=== PATIENT | male | born 1970 | race Caucasian/White ===

== ENCOUNTER 2017-05-12 18:55 | Inpatient (IN) | payer BC ==
[2017-05-12] MEDS ORDERED: SODIUM CHLORIDE 1,000 ML IV STA (20:22)
[2017-05-12] MEDS ORDERED: ONDANSETRON 4 MG/2 ML VIAL IVPUSH ONE (20:22)
[2017-05-12] MEDS ORDERED: morphine CARPU-JECT 4 MG/1 ML DISP.SYRIN IVPUSH ONE (20:22)
[2017-05-12] MEDS ORDERED: ACETAMINOPHEN 500 MG TABLET (FP) PO ONE (20:23)
[2017-05-12] MEDS ORDERED: ACETAMINOPHEN 325 MG TABLET (FP) ONE (20:56)
[2017-05-12] MEDS ORDERED: ONDANSETRON 4 MG/2 ML VIAL ONE (20:56)
[2017-05-12] MEDS ORDERED: morphine CARPU-JECT 4 MG/1 ML DISP.SYRIN ONE (20:56)
[2017-05-12 20:57] LABS: BASOPHIL 0.6 % (0-2.0); EOSINOPHIL 0.3 % (0-4.5); MCH 30.5 pg (25.7-33.7); MCHC 33.7 g/dl (32.0-35.9); MEAN CELL VOLUME 90.5 fl (80-96); MEAN PLT VOLUME 9.4 fl (7.5-11.1); NEUTROPHILS 89.8 % (42.8-82.8); PLATELET COUNT 197 K/MM3 (134-434); RDW 13.2 % (11.9-15.9); WHITE BLOOD COUNT 8.5 K/mm3 (4.0-10.0)
[2017-05-12 20:59] LABS: URINE APPEARANCE CLEAR; URINE BILIRUBIN NEGATIVE (NEGATIVE); URINE BLOOD NEGATIVE (NEGATIVE); URINE COLOR YELLOW; URINE GLUCOSE (UA) 3+ (NEGATIVE); URINE KETONE TRACE (NEGATIVE); URINE LEUK ESTERASE NEGATIVE (NEGATIVE); URINE NITRITE NEGATIVE (NEGATIVE); URINE UROBILINOGEN NEGATIVE mg/dL (0.2-1.0)
[2017-05-12 21:13] LABS: URINE PROTEIN 1+ (NEGATIVE)
[2017-05-12 21:15] LABS: URINE MUCUS RARE; URINE RBC 1 /hpf (0-3); URINE WBC 2 /hpf (3-5)
[2017-05-12 21:26] LABS: ALBUMIN 3.7 g/dl (3.4-5.0); ALK PHOS 90 U/L (45-117); AMYLASE 19 U/L (25-115); ANION GAP 9 (8-16); BILIRUBIN,TOTAL 1.3 mg/dL (0.2-1.0); CALCIUM 8.9 mg/dL (8.5-10.1); CO2 29 mmol/L (21-32); CREATININE 0.8 mg/dL (0.7-1.3); GLUCOSE,RANDOM 220 mg/dL (74-106); SGOT/AST 27 U/L (15-37); SGPT/ALT 46 U/L (12-78); TOT PROT 7.1 g/dl (6.4-8.2)
--- NOTE | 2017-05-12 22:33 | PDOC ---
History of Present Illness - General Chief Complaint: Pain Stated Complaint: ABD PAIN Time Seen by Provider: 05/12/17 20:15 History Source: Patient, Significant Other Exam Limitations: No Limitations - History of Present Illness Travel History: No Initial Comments: 05/12/17 22:28 46yo Male patient with no significant past medical history presents to ED c/o severe abdominal pain which began this morning around 4-5am. Patient states he was sitting up drinking tea when symptoms began. Patient states symptoms progressed throughout the day with associated low grade fever. Last BM: last night (normal). He denies n/v/d, CP, Diff breathing, hematuria, dysuria, rectal bleeding, or any other complaints at this time. PCP- None. Timing/Duration: reports: constant, getting worse Quality: reports: severe Abdominal Pain Onset Location: reports: RLQ, periumbilical Pain Radiation: reports: no radiation Activities at Onset: reports: no specific activity Treatment Prior to Arrive: worse with: analgesics, antacids, cold pack, heat, laxative, enema, other Aggravating Factors: worse with: None, Defecation, Eating, Emotional upset, Exertion, Rockholds, Movement, Voiding, Change in position Alleviating Factors: worse with: None, Belching, Shallow Breathing, Defecation, Eating, Holding Breath, Passing Gas, Change in Position, Rest, Voiding, Vomiting Past History - Travel Traveled outside of the country in the last 30 days: No Close contact w/someone who was outside of country & ill: No - Past Medical History Allergies/Adverse Reactions: Allergies Allergy/AdvReac Type Severity Reaction Status Date / Time No Known Allergies Allergy Verified 05/12/17 21:03 Home Medications: Ambulatory Orders NK [No Known Home Medication] 02/05/16 Other medical history: NONE - Immunization History Immunization Up to Date: Yes - Psycho/Social/Smoking Cessation Hx Anxiety: No Suicidal Ideation: No Smoking History: Never smoked Have you smoked in the past 12 months: No Hx Alcohol Use: No Drug/Substance Use Hx: No Substance Use Type: None Abd/GI Specific PMHX - Complaint Specific PMHX Colitis: No Diverticulitis: No Gall Bladder Disease: No GERD: No Hepatitis: No Irritable Bowel Synd (IBS): No Pancreatitis: No GI Ulcer Disease: No Review of Systems - Review of Systems Able to Perform ROS?: Yes Is the patient limited [place] Citizen proficient: No Respiratory: No: Cough Cardiac (ROS): No: Chest Pain, Edema, Palpitations, Syncope, Chest Tightness ABD/GI: Yes: Other (Abdominal Pain- RLQ and Periumbilical). No: Constipated, Diarrhea, Nausea, Poor Appetite, Poor Fluid Intake, Vomiting, Abdominal cramping : No: Burning, Dysuria, Flank Pain, Hematuria Musculoskeletal: Yes: Back Pain (Chronic) Integumentary: No: Bruising, Erythema, Rash Neurological: No: Headache, Seizure All Other Systems: Reviewed and Negative *Physical Exam - Vital Signs Last Vital Signs Temp Pulse Resp BP Pulse Ox 99.4 F 102 H 20 162/94 97 05/12/17 19:01 05/12/17 19:01 05/12/17 19:01 05/12/17 19:01 05/12/17 19:01 - Physical Exam General Appearance: Yes: Nourished, Appropriately Dressed, Apparent Distress, Moderate Distress. No: Mild Distress, Severe Distress Neck: positive: Trachea midline, Normal Thyroid, Supple. negative: Stridor, Lymphadenopathy (R), Lymphadenopathy (L) Respiratory/Chest: positive: Lungs Clear, Normal Breath Sounds. negative: Chest Tender, Respiratory Distress, Accessory Muscle Use, Labored Respiration, Rapid RR, Rhonchi, Stridor, Wheezing Cardiovascular: positive: Regular Rhythm, Regular Rate Gastrointestinal/Abdominal: positive: Normal Bowel Sounds, Tender, Soft, Guarding, Rebound, Tenderness. negative: Increased Bowel Sounds, Distended Musculoskeletal: positive: Normal Inspection. negative: CVA Tenderness, CVA Tenderness (R), CVA Tenderness (L), Decreased Range of Motion Extremity: positive: Normal Capillary Refill, Normal Inspection, Normal Range of Motion. negative: Pedal Edema, Swelling, Calf Tenderness, Erythema, Inflammation Integumentary: positive: Normal Color, Dry, Warm Neurologic: positive: file clerk II-XII NML intact, Fully Oriented, Alert, Normal Mood/ Affect, Normal Response, Motor Strength /5 ED Treatment Course - LABORATORY CBC & Chemistry Diagram: 05/12/17 20:51 05/12/17 20:51 - ADDITIONAL ORDERS Additional order review: Laboratory Results 05/12/17 05/12/17 20:51 20:51 Sodium 135 L Potassium 4.3 Chloride 97 L Carbon Dioxide 29 Anion Gap 9 BUN 9 Creatinine 0.8 Creat Clearance w eGFR > 60 Random Glucose 220 H Calcium 8.9 Total Bilirubin 1.3 H AST 27 ALT 46 Alkaline Phosphatase 90 Total Protein 7.1 Albumin 3.7 Total Amylase 19 L Lipase 103 Urine Color Yellow Urine Appearance Clear Urine pH 5.0 Urine Protein 1+ H Urine Glucose (UA) 3+ H Urine Ketones Trace H Urine Blood Negative Urine Nitrite Negative Urine Bilirubin Negative Urine Urobilinogen Negative Ur Leukocyte Esterase Negative Urine RBC 1 Urine WBC 2 Urine Mucus Rare 05/12/17 20:51 RBC 4.91 MCV 90.5 MCHC 33.7 RDW 13.2 MPV 9.4 Neutrophils % 89.8 H Lymphocytes % 3.9 L Monocytes % 5.4 Eosinophils % 0.3 Basophils % 0.6 - RADIOLOGY Radiology Studies Ordered: Category Date Time Status ABDOMEN & PELVIS CT WITH CONTR [CT] Stat CT Scan 05/12/17 20:23 Ordered - Medications Given in the ED: ED Medications Discontinued Medications Generic Name Dose Route Start Last Admin Trade Name Freq PRN Reason Stop Dose Admin Acetaminophen 1,000 mg 05/12/17 20:23 05/12/17 21:02 Tylenol - PO 05/12/17 20:24 1,000 mg ONCE ONE Administration Sodium Chloride 1,000 mls @ 1,000 mls/hr 05/12/17 20:22 05/12/17 21:02 Normal Saline - IV 05/12/17 21:21 1,000 mls/hr ASDIR STA Administration Morphine Sulfate 4 mg 05/12/17 20:22 05/12/17 21:02 Morphine Injection - IVPUSH 05/12/17 20:23 4 mg ONCE ONE Administration Ondansetron HCl 4 mg 05/12/17 20:22 05/12/17 21:02 Zofran Injection IVPUSH 05/12/17 20:23 4 mg ONCE ONE Administration *DC/Admit/Observation/Transfer Diagnosis at time of Disposition: Appendicitis Qualifiers: Appendicitis type: acute appendicitis Acute appendicitis type: unspecified acute appendicitis type Qualified Code(s): K35.80 - Unspecified acute appendicitis - Discharge Dispostion Condition at time of disposition: Fair Admit: Yes
[2017-05-13] MEDS ORDERED: SODIUM CHLORIDE 1,000 ML IV STA (00:08)
[2017-05-13] MEDS ORDERED: PIPERACILLIN/TAZOB 3.375 GM/50 ML PRE-DOCKED IV ONE (00:08)
[2017-05-13] MEDS ORDERED: morphine CARPU-JECT 4 MG/1 ML DISP.SYRIN IVPUSH ONE (00:24)
[2017-05-13] MEDS ORDERED: morphine CARPU-JECT 4 MG/1 ML DISP.SYRIN ONE (00:29)
[2017-05-13] MEDS ORDERED: PIPERACILLIN/TAZOB 3.375 GM 50 ML IVPB ONE (00:30)
[2017-05-13] MEDS ORDERED: ONDANSETRON 4 MG/2 ML VIAL IVPB PRN ×2 (01:09→11:45)
[2017-05-13] MEDS ORDERED: SODIUM CHLORIDE 1,000 ML IV SCH (01:15)
--- NOTE | 2017-05-13 01:17 | HP ---
CHIEF COMPLAINT: "Right sided abdominal pain" PCP: No PCP HISTORY OF PRESENT ILLNESS: Patient is a 46 year old male with no signficant past medical history presented to the ED with the chief complaints of severe right sided abdominal pain. As per the patient, he was apparently well until one day ago, then he suddenly developed epigastric pain that woke him up from sleep at around 2am in the morning. Abdominal pain got worse, crampy in nature, 9/10 in intensity, slowly he experienced pain in the right lower quadrant, non radiating, no relieving factors (Ibuprofen didn't help) and no aggravating factors. Not associated with nausea or vomiting. Associated with low grade fever, chills, rigors and sweating. Pain was unbearable and hence came in to the ED. Patient mentions that he hasn't seen any doctor since 5 years, hasn't had a physical, doesn't know his past medical illness. Bowel/Bladder habit normal. Sleep/Appetite normal prior his illness. ER course was notable for: (1) Afebrile, hemodynamically stable, no leukocytosis (2) CT abdomen/Pelvis: Moderate suspicion of appendicitis (3) IV NS, Zofran, and Zosyn. Recent Travel: None PAST MEDICAL HISTORY: None PAST SURGICAL HISTORY: None Social History: Smoking: Former smoker, quit 18 years ago Alcohol: Drinks 3-4times/night- 3-4 beers, shots of whiskey, wine Drugs: Denies Family History: Unknown Allergies No Known Allergies Allergy (Verified 05/12/17 21:03) HOME MEDICATIONS: Home Medications Medication Instructions Recorded NK [No Known Home Medication] 02/05/16 REVIEW OF SYSTEMS CONSTITUTIONAL: Present: fever, chills, diaphoresis, Absent: generalized weakness, malaise, loss of appetite, weight change HEENT: Absent: rhinorrhea, nasal congestion, throat pain, throat swelling, difficulty swallowing, mouth swelling, ear pain, eye pain, visual changes CARDIOVASCULAR: Absent: chest pain, syncope, palpitations, irregular heart rate, lightheadedness , peripheral edema RESPIRATORY: Absent: cough, shortness of breath, dyspnea with exertion, orthopnea, wheezing, stridor, hemoptysis GASTROINTESTINAL: Present: abdominal pain Absent: , abdominal distension, nausea, vomiting, diarrhea, constipation, melena , hematochezia GENITOURINARY: Absent: dysuria, frequency, urgency, hesitancy, hematuria, flank pain, genital pain MUSCULOSKELETAL: Absent: myalgia, arthralgia, joint swelling, back pain, neck pain SKIN: Absent: rash, itching, pallor HEMATOLOGIC/IMMUNOLOGIC: Absent: easy bleeding, easy bruising, lymphadenopathy, frequent infections ENDOCRINE: Absent: unexplained weight gain, unexplained weight loss, heat intolerance, cold intolerance NEUROLOGIC: Absent: headache, focal weakness or paresthesias, dizziness, unsteady gait, seizure, mental status changes, bladder or bowel incontinence PSYCHIATRIC: Absent: anxiety, depression, suicidal or homicidal ideation, hallucinations. PHYSICAL EXAMINATION GENERAL: Young male, lying comfortably in bed, Awake, alert, and fully oriented , in no acute distress. HEAD: Normal with no signs of trauma. EYES: EOM intact, no pallor or icterus. EARS, NOSE, THROAT: Ears normal. Moist mucous membranes. NECK: Normal range of motion, supple without lymphadenopathy, JVD, or masses. LUNGS: Breath sounds equal, clear to auscultation bilaterally. No wheezes, and no crackles. HEART: Regular rate and rhythm, normal S1 and S2 without murmur, rub or gallop. ABDOMEN: Soft, rebound tenderness in the right lower quadrant, Rovsing sign +, obturator sign +, not distended, normoactive bowel sounds, no guarding, no rebound, no masses. Hepatomegaly or splenomegaly couldn't be assessed. MUSCULOSKELETAL: Normal range of motion at all joints. No bony deformities or tenderness. No CVA tenderness. UPPER EXTREMITIES: 2+ pulses, warm, well-perfused. No cyanosis. No clubbing. No peripheral edema. LOWER EXTREMITIES: 2+ pulses, warm, well-perfused. No calf tenderness. No peripheral edema. NEUROLOGICAL: No facial droop. Cranial nerves II-XII intact. Normal speech.Gait not observed. Reflexes intact, power 5/5 in all ext. PSYCHIATRIC: Cooperative. Good eye contact. Appropriate mood and affect. SKIN: Warm, dry, normal turgor, no rashes or lesions noted, normal capillary refill. ASSESSMENT/PLAN: Patient is a 46 year old male with no signficant past medical history presented to the ED with the chief complaints of severe right sided abdominal pain. # Acute appendicitis c/o right sided abdominal pain Abd/Pelvis CT scan showed Moderate suspicion for acute appendicitis In the Ed, patient received IV NS, IV Zosyn Admitted in Med-Surg IV NS @ 75mls/hr IV MOrphine for pain control IV Zofran for nausea NPO Type and screen Dr. Patterson has been consulted. As per ED staff, Dr. Patterson has been informed and he might operate him tomorrow. # R/O DM, HLD HbA1c ordered, Lipid profile ordered # FEN IV NS @ 75mls.hr Electrolytes normal NPO # Prophylaxis For DVT: On SCDs, ambulating FoR GI: Not on prophylaxis # Code Status: Full Code # Dispo: Admitted in Med-Surg. Duration of stay unknown. Illness, Investigation and Plan of care explained to the patient and his . They verbalized understanding. Case to be discussed with Dr. Smith. Visit type - Emergency Visit Emergency Visit: Yes ED Registration Date: 05/13/17 Care time: The patient presented to the Emergency Department on the above date and was hospitalized for further evaluation of their emergent condition. - New Patient This patient is new to me today: Yes Date on this admission: 05/13/17 - Critical Care Critical Care patient: No
[2017-05-13] MEDS ORDERED: morphine CARPU-JECT 4 MG/1 ML DISP.SYRIN IVPUSH PRN ×2 (01:31→11:45)
[2017-05-13 04:42] VITALS: BMI 28.6
[2017-05-13] MEDS ORDERED: PT OWN MED DRAWER 7, Y5N ONE (06:58)
--- NOTE | 2017-05-13 07:16 | PN ---
Teaching Attending Note Name of Resident: Pearl Briscoe ATTENDING PHYSICIAN STATEMENT I saw and evaluated the patient. I reviewed the resident's note and discussed the case with the resident. I agree with the resident's findings and plan as documented. 46 yrs old healthy man present with Rt LQ with , subjective fever and chills with nausea, came to Ed for evaluation, w/u shows normal TWBC, normal CMP, P exam consitent with RT LQ tenderness with rebound+ , + abd sound, CT abdomen shows acute appendicitis, no barbie-appendicuar abscess , agrees with plan of care and evaluation; Impression; Acute appendicitis; NPO pain control IV Hydration, Surgery consult, IV abx Unasyn/Ceftriaxone+Flagyl. Hyperglycemia; Most likey T2DM; RPG 200 patient is NPO, F/U HBA1C , AccUcheck q 6 s;liding scale coverage.
[2017-05-13 07:29] LABS: BASOPHIL 0.8 % (0-2.0); EOSINOPHIL 0.1 % (0-4.5); MCH 31.2 pg (25.7-33.7); MCHC 34.4 g/dl (32.0-35.9); MEAN CELL VOLUME 90.7 fl (80-96); NEUTROPHILS 81.8 % (42.8-82.8); PLATELET COUNT 173 K/MM3 (134-434); RDW 13.2 % (11.9-15.9); WHITE BLOOD COUNT 4.7 K/mm3 (4.0-10.0)
[2017-05-13 07:39] LABS: INR 1.17 (0.82-1.09); PROTHROMBIN TIME (PATIENT) 12.9 SEC (9.98-11.88)
[2017-05-13 07:42] LABS: ACTIVATED PTT 28.1 SECONDS (26.9-34.4)
[2017-05-13 07:59] LABS: CHOLESTEROL 233 mg/dL (50-200)
[2017-05-13 08:00] LABS: ALBUMIN 3.1 g/dl (3.4-5.0); ALK PHOS 76 U/L (45-117); ANION GAP 7 (8-16); BILIRUBIN,TOTAL 1.5 mg/dL (0.2-1.0); CO2 29 mmol/L (21-32); CREATININE 0.8 mg/dL (0.7-1.3); GLUCOSE,RANDOM 222 mg/dL (74-106); SGOT/AST 28 U/L (15-37); SGPT/ALT 47 U/L (12-78); TOT PROT 6.1 g/dl (6.4-8.2)
[2017-05-13] MEDS ORDERED: AMPICILLIN NA/SULBACTAM NA 3 GM in SODIUM CHLORIDE 100 ML IVPB SCH (08:00)
[2017-05-13] MEDS ORDERED: AMPICILLIN NA/SULBACTAM NA 3 GM/100 ML PRE-DOCKED IVPB SCH (08:00)
[2017-05-13 08:34] LABS: LDL CHOLESTEROL (ONLY SJRH) 140 mg/dL (5-100)
[2017-05-13] MEDS ORDERED: LACTATED RINGERS SOLUTION 1,000 ML IV SCH (09:15)
--- NOTE | 2017-05-13 09:41 | CONSULT ---
- Consultation REQUESTING PROVIDER: ER RECREATION ATTENDANT SUPERVISOR CONSULT REQUEST: We have been asked to surgically evaluate this patient for abdominal pain PCP:Jenna Coy HISTORY OF PRESENT ILLNESS: 46 y/o male presented w/ 24-36 hours of generalized to RLQ abdominal pain; pain increased by moving around; better lying still; pain shatp and constant and w/o radiation from the RLQ; he never had this before; he denies any other GI/ c/o. Has some nausea; no vomiting. PMHx: none; h/e has not seen a physician recently PSHx: none Home Medications Medication Instructions Recorded NK [No Known Home Medication] 02/05/16 Allergies Allergy/AdvReac Type Severity Reaction Status Date / Time No Known Allergies Allergy Verified 05/12/17 21:03 PHYSICAL EXAM: GENERAL: Awake, alert, and fully oriented, in no acute distress. HEAD: Normal with no signs of trauma. EYES: sclera anicteric, conjunctiva clear. NECK: Normal ROM, supple without lymphadenopathy, JVD, or masses. ABDOMEN: Soft, tender in the RLQ w/guarding and rebound; psoas obturator and Rovsings signs are present, not distended, hypoactive bowel sounds, no hernias ; no scars MUSCULOSKELETAL: Normal ROM at all joints. No bony deformities or tenderness. No CVA tenderness. UPPER EXTREMITIES: 2+ pulses, warm, well-perfused. No cyanosis. Cap refill <2 seconds. No peripheral edema. LOWER EXTREMITIES: 2+ pulses, warm, well-perfused. No calf tenderness. No peripheral edema. NEUROLOGICAL: Normal speech, gait not observed. PSYCH: Cooperative. Good eye contact. Appropriate mood and affect. SKIN: Warm, dry, normal turgor, no rashes or lesions noted. Vital Signs Temperature 99.5 F 05/13/17 08:55 Pulse Rate 88 05/13/17 08:55 Respiratory Rate 18 05/13/17 08:55 Blood Pressure 120/84 05/13/17 08:55 O2 Sat by Pulse Oximetry (%) 93 L 05/13/17 08:55 Lab Results WBC 4.7 K/mm3 (4.0-10.0) D 05/13/17 06:00 RBC 4.33 M/mm3 (4.00-5.60) 05/13/17 06:00 Hgb 13.5 GM/dL (11.7-16.9) 05/13/17 06:00 Hct 39.3 % (35.4-49) 05/13/17 06:00 MCV 90.7 fl (80-96) 05/13/17 06:00 MCHC 34.4 g/dl (32.0-35.9) 05/13/17 06:00 RDW 13.2 % (11.9-15.9) 05/13/17 06:00 Plt Count 173 K/MM3 (134-434) 05/13/17 06:00 Sodium 135 mmol/L (136-145) L 05/13/17 06:00 Potassium 4.0 mmol/L (3.5-5.1) 05/13/17 06:00 Chloride 99 mmol/L (98-107) 05/13/17 06:00 Carbon Dioxide 29 mmol/L (21-32) 05/13/17 06:00 Anion Gap 7 (8-16) L 05/13/17 06:00 BUN 8 mg/dL (7-18) 05/13/17 06:00 Creatinine 0.8 mg/dL (0.7-1.3) 05/13/17 06:00 Random Glucose 222 mg/dL (74-106) H 05/13/17 06:00 Calcium 8.0 mg/dL (8.5-10.1) L 05/13/17 06:00 Blood Type O POSITIVE 05/13/17 08:51 Antibody Screen Negative 05/13/17 06:00 INR 1.17 (0.82-1.09) H 05/13/17 06:00 CT scan a/p reviewed IMP: acute appendicitis PLAN: lap appendectomy possible open ; r/b/t/a's d/w the patient; he wishes to proceed; informed consent obtained. Stuart Patterson MD FACS Visit type - Case Type Case Type: ED Admission - Emergency Emergency Visit: Yes ED Registration Date: 05/13/17 Care time: The patient presented to the Emergency Department on the above date and was hospitalized for further evaluation of their emergent condition. - New patient This patient is new to me today: Yes Date on this admission: 05/13/17 - Critical Care Critical Care patient: No
[2017-05-13] MEDS ORDERED: BUPIVACAINE HCL/PF 0.5% (5MG/ML) 10 ML VIAL ONE (09:50)
[2017-05-13] MEDS ORDERED: PROPOFOL 20 ML ONE (09:57)
[2017-05-13] MEDS ORDERED: SUCCINYLCHOLINE CHLORIDE 200 MG/10 ML VIAL ONE (09:57)
[2017-05-13] MEDS ORDERED: ROCURONIUM BROMIDE 50 MG/5 ML VIAL ONE (09:57)
[2017-05-13] MEDS ORDERED: MIDAZOLAM HCL 2 MG/2 ML SINGLE DOSE VIAL ONE (09:58)
--- NOTE | 2017-05-13 10:02 | PN ---
Progress Note (short form) - Note Progress Note: Subjective: RLQ pain , no cough , dysuria , or diarrhea . denies exertional cp , denies SOB , h/o heart filur e, swelling in LE , or palpitations Objective: Vital Signs: Last Vital Signs Temp Pulse Resp BP Pulse Ox 99.5 F 88 18 120/84 93 L 05/13/17 08:55 05/13/17 08:55 05/13/17 08:55 05/13/17 08:55 05/13/17 08:55 Laboratory Results - last 24 hr 05/12/17 05/12/17 05/12/17 20:51 20:51 20:51 WBC 8.5 RBC 4.91 Hgb 15.0 Hct 44.5 MCV 90.5 MCH 30.5 MCHC 33.7 RDW 13.2 Plt Count 197 MPV 9.4 Neutrophils % 89.8 H Lymphocytes % 3.9 L Monocytes % 5.4 Eosinophils % 0.3 Basophils % 0.6 INR PTT (Actin FS) Sodium 135 L Potassium 4.3 Chloride 97 L Carbon Dioxide 29 Anion Gap 9 BUN 9 Creatinine 0.8 Creat Clearance w eGFR > 60 Random Glucose 220 H Hemoglobin A1c % Calcium 8.9 Total Bilirubin 1.3 H AST 27 ALT 46 Alkaline Phosphatase 90 Total Protein 7.1 Albumin 3.7 Triglycerides Cholesterol Total LDL Cholesterol HDL Cholesterol Total Amylase 19 L Lipase 103 Urine Color Yellow Urine Appearance Clear Urine pH 5.0 Urine Protein 1+ H Urine Glucose (UA) 3+ H Urine Ketones Trace H Urine Blood Negative Urine Nitrite Negative Urine Bilirubin Negative Urine Urobilinogen Negative Ur Leukocyte Esterase Negative Urine RBC 1 Urine WBC 2 Urine Mucus Rare Blood Type Antibody Screen 05/13/17 05/13/17 05/13/17 06:00 06:00 06:00 WBC 4.7 D RBC 4.33 Hgb 13.5 Hct 39.3 MCV 90.7 MCH 31.2 MCHC 34.4 RDW 13.2 Plt Count 173 MPV 9.0 Neutrophils % 81.8 Lymphocytes % 9.4 D Monocytes % 7.9 Eosinophils % 0.1 Basophils % 0.8 INR 1.17 H PTT (Actin FS) 28.1 Sodium 135 L Potassium 4.0 Chloride 99 Carbon Dioxide 29 Anion Gap 7 L BUN 8 Creatinine 0.8 Creat Clearance w eGFR > 60 Random Glucose 222 H Hemoglobin A1c % Calcium 8.0 L Total Bilirubin 1.5 H AST 28 ALT 47 Alkaline Phosphatase 76 Total Protein 6.1 L Albumin 3.1 L Triglycerides Cholesterol Total LDL Cholesterol HDL Cholesterol Total Amylase Lipase Urine Color Urine Appearance Urine pH Urine Protein Urine Glucose (UA) Urine Ketones Urine Blood Urine Nitrite Urine Bilirubin Urine Urobilinogen Ur Leukocyte Esterase Urine RBC Urine WBC Urine Mucus Blood Type Antibody Screen 05/13/17 05/13/17 05/13/17 06:00 06:00 06:00 WBC RBC Hgb Hct MCV MCH MCHC RDW Plt Count MPV Neutrophils % Lymphocytes % Monocytes % Eosinophils % Basophils % INR PTT (Actin FS) Sodium Potassium Chloride Carbon Dioxide Anion Gap BUN Creatinine Creat Clearance w eGFR Random Glucose Hemoglobin A1c % 10.0 H Calcium Total Bilirubin AST ALT Alkaline Phosphatase Total Protein Albumin Triglycerides 76 Cholesterol 233 H Total LDL Cholesterol 140 H HDL Cholesterol 71 H Total Amylase Lipase Urine Color Urine Appearance Urine pH Urine Protein Urine Glucose (UA) Urine Ketones Urine Blood Urine Nitrite Urine Bilirubin Urine Urobilinogen Ur Leukocyte Esterase Urine RBC Urine WBC Urine Mucus Blood Type O POSITIVE Antibody Screen Negative 05/13/17 08:51 WBC RBC Hgb Hct MCV MCH MCHC RDW Plt Count MPV Neutrophils % Lymphocytes % Monocytes % Eosinophils % Basophils % INR PTT (Actin FS) Sodium Potassium Chloride Carbon Dioxide Anion Gap BUN Creatinine Creat Clearance w eGFR Random Glucose Hemoglobin A1c % Calcium Total Bilirubin AST ALT Alkaline Phosphatase Total Protein Albumin Triglycerides Cholesterol Total LDL Cholesterol HDL Cholesterol Total Amylase Lipase Urine Color Urine Appearance Urine pH Urine Protein Urine Glucose (UA) Urine Ketones Urine Blood Urine Nitrite Urine Bilirubin Urine Urobilinogen Ur Leukocyte Esterase Urine RBC Urine WBC Urine Mucus Blood Type O POSITIVE Antibody Screen Physical Exam: NAD Cv : RRR, no JVD Lungs : CATB Ext : no edema Abd : soft, ND, TTP in Mcburny's . + Rofsing's sign . Assessment/Plan: 46 y/o man with no PMH who presented with RLQ abd pain. He was found tohave Acute appendicitis 1- Acute appendicitis : - received ABx and IVF. - Dr. Patterson on floor , pt is being taken to OR NOW - if appendix is not ruptured , and there is no abscess, then will not need ABx after sx , otherwise will change bx to CTX and flagyl - pt has no h/o CAD , Stroke , does not have any signs of CHF , Arrhythmias , or ACS. has no exertional CP or SOB. He has excellent functional status ( METS > 10 ) . he is low risk fro this intermediate risk Sx. 2- Newly diagnosed DM: d/w HIm . - start SSI here - will start Metformin as outpt , not before 05/15 due to contrast - add lipitor due to LDL > 70 3- DVT PX Visit type - Emergency Visit Emergency Visit: Yes ED Registration Date: 05/13/17 Care time: The patient presented to the Emergency Department on the above date and was hospitalized for further evaluation of their emergent condition. - New Patient This patient is new to me today: Yes Date on this admission: 05/13/17 - Critical Care Critical Care patient: No
[2017-05-13] MEDS ORDERED: DEXAMETHASONE SOD PHOSPHATE 4 MG/1 ML VIAL ONE (10:39)
[2017-05-13] MEDS ORDERED: BUPIVACAINE HCL/PF 0.5% (5MG/ML) 10 ML VIAL IJ ONE ×2 (10:42→11:12)
[2017-05-13] MEDS ORDERED: INSULIN SLIDING SCALE (NOVOLOG) 1 VIAL SQ SCH (11:00)
[2017-05-13] MEDS ORDERED: GLYCOPYRROLATE 0.2 MG/1 ML VIAL ONE (11:17)
[2017-05-13] MEDS ORDERED: NEOSTIGMINE METHYLSULFATE 0.5 MG/ML - 10 ML MDV ONE (11:17)
--- NOTE | 2017-05-13 11:31 | OP ---
Operative Note - Note: Operative Date: 05/13/17 Pre-Operative Diagnosis: acute appendicitis Operation: lap appendectomy Findings: acute appendicitis Post-Operative Diagnosis: Same as Pre-op Surgeon: Stuart Patterson Instructional Specialist: Joy Major Anesthesia: General Specimens Removed: appendix Estimated Blood Loss (mls): 10 Drains & Tubes with Location: none
[2017-05-13] MEDS ORDERED: oxyCODONE HCL 5 MG TABLET PO PRN (11:37)
[2017-05-13] MEDS ORDERED: ACETAMINOPHEN 325 MG TABLET (FP) PO PRN (11:40)
[2017-05-13] MEDS: SODIUM CHLORIDE 1,000 ML IV SCH ×2 (13:00→23:09)
[2017-05-13] MEDS ORDERED: HEPARIN NA (PORCINE) 5,000 UNITS/ML 1ML VIAL SQ SCH (14:00)
[2017-05-13] MEDS ORDERED: INSULIN (NOVOLOG) ASPART 100 UNITS/ML 10ML VIAL SQ ONE (14:30)
[2017-05-13] MEDS: HEPARIN NA (PORCINE) 5,000 UNITS/ML 1ML VIAL SQ SCH ×2 (14:41→21:40)
[2017-05-13] MEDS: AMPICILLIN NA/SULBACTAM NA 100 ML IVPB SCH (16:11)
--- NOTE | 2017-05-13 17:29 | EKG ---
Test Reason : Blood Pressure : / mmHG Vent. Rate : 083 BPM Atrial Rate : 083 BPM P-R Int : 146 ms QRS Dur : 088 ms QT Int : 346 ms P-R-T Axes : 065 031 034 degrees QTc Int : 406 ms SINUS RHYTHM WITH LEFT ATRIAL ABNORMALITY POSSIBLE LEFT ATRIAL ENLARGEMENT ST ELEVATION, CONSIDER EARLY REPOLARIZATION, PERICARDITIS, OR INJURY NO CLINICAL INFORMATION IS AVAILABLE PLEASE CORELATE AND REPEAT INDICATED Confirmed by ALEX BERRY MD ([id number]) on 05/13/2017 5:28:39 PM Referred By: Confirmed By:ALEX BERRY MD
[2017-05-13] MEDS: INSULIN SLIDING SCALE (NOVOLOG) 1 VIAL SQ SCH (17:59)
[2017-05-13] MEDS ORDERED: HEPARIN NA (PORCINE) 5,000 UNITS/ML 1ML VIAL ONE (21:21)
[2017-05-13] MEDS: oxyCODONE HCL 5 MG TABLET PO PRN (23:09)
[2017-05-14] MEDS: AMPICILLIN NA/SULBACTAM NA 100 ML IVPB SCH (01:29)
[2017-05-14] MEDS: INSULIN SLIDING SCALE (NOVOLOG) 1 VIAL SQ SCH ×2 (06:25→12:54)
[2017-05-14] MEDS: HEPARIN NA (PORCINE) 5,000 UNITS/ML 1ML VIAL SQ SCH ×2 (06:26→15:06)
--- NOTE | 2017-05-14 08:26 | PN ---
Physical Exam: SUBJECTIVE: Patient seen and examined this AM. Doing well post surgery. Still complains of LLQ pain, improved from yesterday. No CP, no SOB, no fevers, no chills, tolerated clear liquid diet, no N/V. Passing gas, no BM. OBJECTIVE: Vital Signs Period Temp Pulse Resp BP Sys/Perera Pulse Ox Last 24 Hr 97.9 F-99.5 F 65-96 18-18 111-149/65-92 93-99 GENERAL: The patient is awake, alert, and fully oriented, in no acute distress HEENT: PERRLA, EOMi, no LAD LUNG: CTABL, breath sounds clear, no wheezes, no crackles HEART: S1, S2, RRR, no MRG ABD: Soft, mild TTP in LLQ improved from yesterday, non distended, bandage over lap site EXTREMITIES: 2+ pulses, warm, weell perfusised, no edema NEURO: Cranial nerves II through XII grossly intact. No facial droop, sensation evette ntact to face and body bilaterally, muscle strength 5/5, reflexes 2+. Normal speech, gait not observed. Laboratory Results - last 24 hr 05/13/17 05/13/17 05/13/17 06:00 06:00 06:00 WBC 4.7 D RBC 4.33 Hgb 13.5 Hct 39.3 MCV 90.7 MCH 31.2 MCHC 34.4 RDW 13.2 Plt Count 173 MPV 9.0 Neutrophils % 81.8 Lymphocytes % 9.4 D Monocytes % 7.9 Eosinophils % 0.1 Basophils % 0.8 POC Glucometer Hemoglobin A1c % Triglycerides 76 Cholesterol 233 H Total LDL Cholesterol 140 H HDL Cholesterol 71 H Blood Type O POSITIVE Antibody Screen Negative 05/13/17 05/13/17 05/13/17 06:00 08:51 14:03 WBC RBC Hgb Hct MCV MCH MCHC RDW Plt Count MPV Neutrophils % Lymphocytes % Monocytes % Eosinophils % Basophils % POC Glucometer 236 Hemoglobin A1c % 10.0 H Triglycerides Cholesterol Total LDL Cholesterol HDL Cholesterol Blood Type O POSITIVE Antibody Screen 05/13/17 05/13/17 05/14/17 17:25 21:35 04:16 WBC RBC Hgb Hct MCV MCH MCHC RDW Plt Count MPV Neutrophils % Lymphocytes % Monocytes % Eosinophils % Basophils % POC Glucometer 256 203 220 Hemoglobin A1c % Triglycerides Cholesterol Total LDL Cholesterol HDL Cholesterol Blood Type Antibody Screen Active Medications Generic Name Dose Route Start Last Admin Trade Name Freq PRN Reason Stop Dose Admin Acetaminophen 650 mg 05/13/17 11:40 Tylenol - PO Q6H PRN FEVER OR PAIN Atorvastatin Calcium 40 mg 05/14/17 22:00 Lipitor - PO HS GRECIA Heparin Sodium (Porcine) 5,000 unit 05/13/17 14:00 05/14/17 06:26 Heparin - SQ 5,000 unit TID GRECIA Administration Sodium Chloride 1,000 mls @ 75 mls/hr 05/13/17 11:45 05/13/17 23:09 Normal Saline - IV 75 mls/hr ASDIR GRECIA Administration Insulin Aspart 1 vial 05/13/17 16:30 05/14/17 06:25 Novolog Vial Sliding Scale - SQ 2 units TIDAC GRECIA Administration Protocol Morphine Sulfate 1 mg 05/13/17 11:45 05/13/17 16:06 Morphine Injection - IVPUSH 1 mg Q4H PRN Administration PAIN Ondansetron HCl 4 mg 05/13/17 11:45 Zofran Injection IVPB Q6H PRN NAUSEA Oxycodone HCl 5 mg 05/13/17 11:37 Roxicodone - PO Q6H PRN PAIN LEVEL 1-5 Oxycodone HCl 10 mg 05/13/17 11:38 05/13/17 23:09 Roxicodone - PO 10 mg Q6H PRN Administration PAIN LEVEL 6-10 ASSESSMENT/PLAN: Pt is a 46yo M with no significant PMHx who presented to the ED with sudden, severe, R sided abdominal pain. He was TTP in the RLQ on exam with + Psoas, Rovsing, and Obturator signs. A CT scan of the abd/pelvis in [facility] ED revealed moderate suspicion for acute appendicitis. He was given fluids, antiemetics ( Zofran), and IV antibiotics. # Acute Appendicitis - POD 1 from lap appy - Received IV Unasyn 1.5gm Q postop, now on no antibiotics - IVF at 75mL/hr + advancing to soft diet today - IV Morphine + PO Morphine + Tylenol PO PRN for pain - IV Zofran for nausea # DM2 (newly diagnosed) - A1C 10 this admision - BGMs with SSI - Will start Metformin as an outpatient (not before May 15 due to contrast from CT) # Hyperlipidemia - Total chol 233, LDL 140 - LDL >70, newly diagnosed DM2, age + 40 - Started Atorvastatin 40mg QHS # FEN - Fluids: IV NS at 75mL/hr - Electrolytes - monitor - Nutrition: soft diabetic diet # Prophylaxis - DVT - On SCDs - GI - Not indicated - Deconditioning - PT ordered # Disposition - Pt needs PCP prior to discharge, has not seen one recentl
[2017-05-14 09:50] LABS: BILIRUBIN,TOTAL 0.7 mg/dL (0.2-1.0)
[2017-05-14 09:56] LABS: ALK PHOS 73 U/L (45-117); ANION GAP 5 (8-16); CALCIUM 8.7 mg/dL (8.5-10.1); CO2 30 mmol/L (21-32); CREATININE 0.8 mg/dL (0.7-1.3); GLUCOSE,RANDOM 246 mg/dL (74-106); SGOT/AST 27 U/L (15-37); SGPT/ALT 44 U/L (12-78); TOT PROT 6.5 g/dl (6.4-8.2)
--- NOTE | 2017-05-14 10:19 | PN ---
Progress Note (short form) - Note Progress Note: Attending Surgeon POD #1 No c/o tolerated diet VSS AF abdomen-soft/flat and non tender port site dressigs c/d/i; o/w neagtive. IMP: doing well PLAN:D/ home to OPD f/u next week;a/au by the patient. Stuart Patterson MD FACS
[2017-05-14] MEDS: oxyCODONE HCL 5 MG TABLET PO PRN (11:52)
[2017-05-14] MEDS: SODIUM CHLORIDE 1,000 ML IV SCH (12:30)
--- NOTE | 2017-05-14 12:46 | SURG ---
Surgery Fishing Line Winding Machine Operator Note Fishing Line Winding Machine Operator: Joy Major PA-C Date of Service: 05/13/17 Diagnosis: acute appendicitis Procedure: lap appendectomy I was present for the entirety of the operative procedure. For further detail, please refer to operative report. Visit type - Case Type Case Type: ED Admission - Emergency Emergency Visit: Yes ED Registration Date: 05/13/17 Care time: The patient presented to the Emergency Department on the above date and was hospitalized for further evaluation of their emergent condition. - New patient This patient is new to me today: Yes Date on this admission: 05/13/17 - Critical Care Critical Care patient: No
[2017-05-14] MEDS ORDERED: PT OWN MED DRAWER 7, Y5N ONE (12:50)
--- NOTE | 2017-05-14 13:09 | PN ---
Progress Note (short form) - Note Progress Note: Anesthesia post op note,POD#1 Patient seen and examined. S/P lap appy in [facility]. VSS. No apparent post anesthesia complications. signed off.
--- NOTE | 2017-05-14 13:41 | PN ---
Teaching Attending Note Name of Resident: Cynthia Schmid ATTENDING PHYSICIAN STATEMENT I saw and evaluated the patient. I reviewed the resident's note and discussed the case with the resident. I agree with the resident's findings and plan as documented. SUBJECTIVE: no fever or chills, abd pain has improved no N/V OBJECTIVE: NAD Cv : RRR, no JVD Lungs : CATB Ext : no edema Abd : soft, ND, TTP in RLQ, no rebound tenderness or guarding Assessment/Plan: 46 y/o man with no PMH who presented with RLQ abd pain. He was found tohave Acute appendicitis 1- Acute appendicitis : s/p lap appendectomy POD 1 . doing well , passed gas , tolerated diet - f/u With Sx - regular diet - no need for Abx 2- Newly diagnosed DM: - life style changes start metformin 3- Hyperlipidemia : - lipitor as a new medication dc home
[2017-05-14 15:06] VITALS: BP 112/65; PULSE 78; TEMP 97.7
--- NOTE | 2017-05-14 17:01 | OP ---
DATE OF OPERATION: 05/13/2017 PREOPERATIVE DIAGNOSIS: Chronic appendicitis. POSTOPERATIVE DIAGNOSIS: Chronic appendicitis. PROCEDURE: Laparoscopic appendectomy. SURGEON: Stuart Patterson MD THREAD SEPARATOR: ERUM Calixto ANESTHESIA: General. OPERATIVE FINDINGS: Acute appendicitis. DESCRIPTION OF PROCEDURE: The patient was placed on the operating room in supine position, and after the induction of general anesthesia, the patient's abdomen was prepped with ChloraPrep and draped in sterile fashion. A time-out was taken, and pneumoperitoneum was established above the umbilicus using a Veress needle. Once pressure of 15 mmHg was achieved, a 5-mm supraumbilical port was placed. Next, a 12-mm suprapubic port and a left lower quadrant 5-mm port were placed. The patient was placed head down and rotated to the left and laparoscopy carried out. The previously noted findings were observed. The appendix was grasped and the mesoappendix divided in a serial fashion using the LigaSure device. Once the base of the appendix was identified at the confluence of the tinea, the terminal ileum was identified, and then the 45-mm blue Endo MIKAEL was fired across the base of the appendix. The appendix was then placed in an EndoCatch and brought up against the abdominal wall. Hemostasis was checked for and noted to be good and then the appendix was removed from the suprapubic port. Pneumoperitoneum was reestablished. Again, hemostasis verified, and then all ports were removed under laparoscopic vision without evidence of bleeding from the port sites. The pneumoperitoneum was evacuated, and the defect in the fascia at the suprapubic port site was closed with a single 2-0 Vicryl [id number] suture. All port sites were infiltrated with 0.0.5% Marcaine and the skin edges were reapproximated with 4-0 Biosyn in a subcuticular fashion. Steri-Strips and dry sterile dressings were placed. The procedure was terminated at this point, and the patient was transferred to the post anesthesia care unit in stable condition awake and alert. ESTIMATED BLOOD LOSS: 10 mL. REPLACEMENT: Crystalloid. DRAINS: None. SPECIMEN: Appendix to pathology. I, Stuart Patterson, was physically present in the operating room from the time the patient was placed on the operating room table until he was transferred to the post anesthesia care unit in [place]. MD ROSANGELA Mahajan/[id number]
[2017-05-14] MEDS ORDERED: ATORVASTATIN CA 40 MG TABLET (FP) PO SCH ×2 (22:00)
--- NOTE | 2017-05-15 16:06 | PATH ---
Surgical Pathology Report Patient Name: DUONG CHIN [facility]. Rec. #: [id number] /Age/Gender: 1970 (Age: 46) / M Account: [id number] Location: [address] [place] [address]/[facility] Taken: 05/13/2017 Received: 05/14/2017 Reported: 05/15/2017 Physicians: MD Mady Mahajan Specimen(s) Received APPENDIX Clinical History Acute appendicitis Final Diagnosis APPENDIX, APPENDECTOMY: ACUTE APPENDICITIS AND PERIAPPENDICITIS. PARTIAL FIBROUS OBLITERATION. Electronically Signed Ron Burkett M.D. Gross Description Received in formalin, labeled "appendix" is a 5.5 cm in length vermiform appendix with a stapled margin of resection and moderate attached fat. The serosa is mcleod-colón. Sectioning reveals an unremarkable lumen. The wall of the appendix averages 0.1 cm in thickness. [employer] Sales Manager sections are submitted in one cassette. /05/14/2017 saudi05/14/2017
--- NOTE | 2017-05-15 20:05 | DS ---
Physical Exam: SUBJECTIVE: PPatient seen and examined this AM. Doing well post surgery. Still complains of LLQ pain, improved from yesterday. No CP, no SOB, no fevers, no chills, tolerated clear liquid diet, no N/V. Passing gas, no BM. OBJECTIVE: Vital Signs Temp 97.7 F 05/14/17 14:04 Pulse 78 05/14/17 14:04 Resp 20 05/14/17 14:04 BP 112/65 05/14/17 14:04 Pulse Ox 96 05/14/17 09:00 PHYSICAL EXAM GENERAL: The patient is awake, alert, and fully oriented, in no acute distress HEENT: PERRLA, EOMi, no LAD LUNG: CTABL, breath sounds clear, no wheezes, no crackles HEART: S1, S2, RRR, no MRG ABD: Soft, mild TTP in LLQ improved from yesterday, non distended, bandage over lap site EXTREMITIES: 2+ pulses, warm, weell perfusised, no edema NEURO: Cranial nerves II through XII grossly intact. No facial droop, sensation evette ntact to face and body bilaterally, muscle strength 5/5, reflexes 2+. Normal speech, gait not observed. LABS: Laboratory Last Values WBC 4.7 K/mm3 (4.0-10.0) D 05/13/17 06:00 RBC 4.33 M/mm3 (4.00-5.60) 05/13/17 06:00 Hgb 13.5 GM/dL (11.7-16.9) 05/13/17 06:00 Hct 39.3 % (35.4-49) 05/13/17 06:00 MCV 90.7 fl (80-96) 05/13/17 06:00 MCH 31.2 pg (25.7-33.7) 05/13/17 06:00 MCHC 34.4 g/dl (32.0-35.9) 05/13/17 06:00 RDW 13.2 % (11.9-15.9) 05/13/17 06:00 Plt Count 173 K/MM3 (134-434) 05/13/17 06:00 MPV 9.0 fl (7.5-11.1) 05/13/17 06:00 Neutrophils % 81.8 % (42.8-82.8) 05/13/17 06:00 Lymphocytes % 9.4 % (8-40) D 05/13/17 06:00 Monocytes % 7.9 % (3.8-10.2) 05/13/17 06:00 Eosinophils % 0.1 % (0-4.5) 05/13/17 06:00 Basophils % 0.8 % (0-2.0) 05/13/17 06:00 INR 1.17 (0.82-1.09) H 05/13/17 06:00 PTT (Actin FS) 28.1 SECONDS (26.9-34.4) 05/13/17 06:00 Sodium 137 mmol/L (136-145) 05/14/17 09:14 Potassium 4.4 mmol/L (3.5-5.1) 05/14/17 09:14 Chloride 102 mmol/L (98-107) 05/14/17 09:14 Carbon Dioxide 30 mmol/L (21-32) 05/14/17 09:14 Anion Gap 5 (8-16) L 05/14/17 09:14 BUN 10 mg/dL (7-18) D 05/14/17 09:14 Creatinine 0.8 mg/dL (0.7-1.3) 05/14/17 09:14 Creat Clearance w eGFR > 60 (>60) 05/14/17 09:14 POC Glucometer 252 UNITS (()) 05/14/17 11:14 Random Glucose 246 mg/dL (74-106) H 05/14/17 09:14 Hemoglobin A1c % 10.0 % (4.8-6.0) H 05/13/17 06:00 Calcium 8.7 mg/dL (8.5-10.1) 05/14/17 09:14 Total Bilirubin 0.7 mg/dL (0.2-1.0) D 05/14/17 09:14 AST 27 U/L (15-37) 05/14/17 09:14 ALT 44 U/L (12-78) 05/14/17 09:14 Alkaline Phosphatase 73 U/L (45-117) 05/14/17 09:14 Total Protein 6.5 g/dl (6.4-8.2) 05/14/17 09:14 Albumin 3.0 g/dl (3.4-5.0) L 05/14/17 09:14 Triglycerides 76 mg/dL (35-160) 05/13/17 06:00 Cholesterol 233 mg/dL (50-200) H 05/13/17 06:00 Total LDL Cholesterol 140 mg/dL (5-100) H 05/13/17 06:00 HDL Cholesterol 71 mg/dL (40-60) H 05/13/17 06:00 Total Amylase 19 U/L (25-115) L 05/12/17 20:51 Lipase 103 U/L (73-393) 05/12/17 20:51 Urine Color Yellow 05/12/17 20:51 Urine Appearance Clear 05/12/17 20:51 Urine pH 5.0 (5.0-8.0) 05/12/17 20:51 Ur Specific [place] 1.025 (1.005-1.025) 05/12/17 20:51 Urine Protein 1+ (NEGATIVE) H 05/12/17 20:51 Urine Glucose (UA) 3+ (NEGATIVE) H 05/12/17 20:51 Urine Ketones Trace (NEGATIVE) H 05/12/17 20:51 Urine Blood Negative (NEGATIVE) 05/12/17 20:51 Urine Nitrite Negative (NEGATIVE) 05/12/17 20:51 Urine Bilirubin Negative (NEGATIVE) 05/12/17 20:51 Urine Urobilinogen Negative mg/dL (0.2-1.0) 05/12/17 20:51 Ur Leukocyte Esterase Negative (NEGATIVE) 05/12/17 20:51 Urine RBC 1 /hpf (0-3) 05/12/17 20:51 Urine WBC 2 /hpf (3-5) 05/12/17 20:51 Urine Mucus Rare 05/12/17 20:51 Blood Type O POSITIVE 05/13/17 08:51 Antibody Screen Negative 05/13/17 06:00 HOSPITAL COURSE: Date of Admission:05/13/17 Date of Discharge: 05/15/17 Mr. Love is a 46yo M with no significant PMHx who presented to the ED with sudden, severe, R sided abdominal pain. He was TTP in the RLQ on exam with + Psoas, Rovsing, and Obturator signs. A CT scan of the abd/pelvis in the ED revealed moderate suspicion for acute appendicitis. He was given fluids, antiemetics (Zofran), and IV antibiotics. # Acute Appendicitis - With the clinical findings and correlated imaging, the patient was diagnosed with acute appendicitis. He underwent an uncomplicated laparoscopic appendectomy on 05/13/17. He tolerated the procedure well, was on the appropriate post-op antibiotics, pain control, anti-emetics. His diet was advanced and well-tolerated. The patinet was discharged on Tylenol 650mg PRN for pain. The patient will followup with Dr. Patterson in 2 weeks. # DM2 (newly diagnosed) - The patient's Hgb A1C was 10 on this admission. We informed the patient that he is a diabetic, and started the patient on BGMs and sliding scale insulin. We will start metformin 500mg XR as an outpatient. We told him to follow with Dr. Joseph, a primary care physician, since the patient does not have a PCP # Hyperlipidemia (newly diagnosed) - The patient's total cholesterol was 233, LDL was 140. Because the patient is a diabetic male +40yo and fit the LDL criteria, we started him on Atorastatin 40 ,g QHS. The hospital course was discussed with the patient who agrees to the plan Minutes to complete discharge: 55 Discharge Summary Reason For Visit: APPENDICITIS Condition: Improved - Instructions Diet, Activity, Other Instructions: Dr. Patterson Discharge Instructions Dear DUONG LOVE, Post Operative Instructions Physical activity Resume your normal everyday activity as tolerated no heavy lifting or exercise until seen by your surgeon. You may walk unlimited amounts of and climb stairs. You may resume driving the car when you feel safe and comfortable behind the wheel. Wound care If you have a bandage, leave it on, and keep dry for 48 - 72 hours. After that time discard the outer bandage. If there are tapes on the skin under the outer bandage, leave them in place. They will peel off in the next 7 to 10 days. Do Not peel them off. You may shower 2 days after surgery. If there are tapes present on the skin, they can get wet. Diet There are no dietary restrictions. Eat healthy, high-fiber foods. Drink 6 to 8 glasses of liquid each day. This will assist in keeping your bowels are regular. Pain management You may take Tylenol or acetaminophen or Ibuprofen (for example, Motrin, Advil etc.) Any pain prescription medication ordered should be taken as prescribed for moderate to severe pain. Call Dr. Patterson for any of the following: Severe pain not relieved by medication Fever of 101 or higher Excessive bleeding or drainage on dressing Inability to urinate Call the office at [phone] for a post operative appointment in 7 - 10 days. Medications: - Please start Metformin extended release 500mg on May 15, and take it every day for your diabetes - If you develop nausea, vomiting, or diarrhea please tell your doctor - Please check your sugar three times before meals for 1 week, and report a log to your doctor - Please start Lipitor 40mg, and take it every night for your high cholesterol - If you develop muscle pain, please report to your doctor - Please continue to take Tylenol as needed for pain, do not exceed more than 4, 000mg in one day Primary Care Doctor: - We are referring you to a new Primary Care Physician (Dr. Joseph), please make an appointment with him - Referrals: Stuart Patterson MD [Staff Physician] - 2 Weeks Dale Joseph MD [Staff Physician] - 1 Week (Please try to set up an appointment on Sunday after 1pm, if not, any day from Sun-Sunday is okay.) Disposition: HOME - Home Medications Comprehensive Discharge Medication List: Ambulatory Orders Acetaminophen [Tylenol .Regular Strength -] 650 mg PO Q6H PRN #30 tablet Atorvastatin Ca [Lipitor] 40 mg PO HS #30 tablet 05/14/17 Blood Sugar Diagnostic [Test Strips] 1 each TID #90 strip 05/14/17 Blood-Glucose Meter [Blood Glucose Monitor] 1 each TID #1 each 05/14/17 Metformin HCl [Metformin HCl ER] 500 mg PO DAILY #30 tab.er.24 05/14/17 This patient is new to me today: No Emergency Visit: No Critical Care patient: No - Discharge Referral Referred to [facility] Med [facility] Yes Physician Referral: Dale Joseph MD (Int Med) (Pt has no primary care physician)
== END 2017-05-14 15:26 | disposition home or self-care (01) | DRG 343 ==
LOC: JER 18:55 → JERBED 05-13 00:26 → J5S 05-13 04:09
PROVIDERS: ADMIT Internal Medicine; ATTEND Internal Medicine
PROC: 0DTJ4ZZ Resection of Appendix, Percutaneous Endoscopic Approach (ICD-10-PCS; principal; 2017-05-13 09:13)
DX: K35.80 Unspecified acute appendicitis (principal); E11.9 Type 2 diabetes mellitus without complications; E78.5 Hyperlipidemia, unspecified; R10.31 Right lower quadrant pain
CPT/HCPCS: 36415; 71010-TC; 74177-TC; 80053; 80061; 81003; 81015; 82150; 83036; 83690; 83721; 85025; 85610; 85730; 86850; 86900; 86901; 88304-TC; 93005; 93010; 94010; 94760; 99285-25; J1644